=== PATIENT | male | born 1950 | race Caucasian/White ===

== ENCOUNTER 2023-08-06 04:10 | Emergency (ER) | payer MEDICARE, MEDICAID ==
[~2023-08-06] VITALS: Ht 172.7 cm; Wt 59.1 kg
[~2023-08-06 04:10] MED LIST: ALBU18HF2 INH; ALBU2.5V12 NEB; BUDE10.2 INH; CITA20TA28 PO; CYCL10TA39 PO; GABA800T11 PO; MONT-40 PO; SPIIN INH; TRAM50TA2 PO
[2023-08-06] MEDS: ipratropium/albuterol 3ml nebule NEB ONE (04:44)
[2023-08-06 04:47] VITALS: PULSE 102; RESP 22; O2SAT 97
[2023-08-06] MEDS: clindamycin 150mg capsule PO ONE (04:50)
[2023-08-06] MEDS: ondansetron 4mg rapidly disintigrating tab PO ONE (04:50)
[2023-08-06] MEDS: LIDOcaine/PRILOcaine 5gm cream TP ONE (04:50)
[2023-08-06 05:00] VITALS: PULSE 96; RESP 24; O2SAT 99
[2023-08-06] MEDS ORDERED: LIDO30CR TOP (05:12)
[2023-08-06] MEDS ORDERED: CLIN-214 PO (05:12)
[2023-08-06 05:49] VITALS: BP 136/89; PULSE 91; RESP 18; TEMP 98; O2SAT 98
== END 2023-08-06 05:50 | disposition home or self-care (01) ==
LOC: ER 04:10
DX: J34.0 Abscess, furuncle and carbuncle of nose (principal); F32.A Depression, unspecified; Z88.2 Allergy status to sulfonamides; Z79.899 Other long term (current) drug therapy
CPT/HCPCS: 30000; 94640; 99285; Z7610; 10060; 94760